=== PATIENT | male | born 1940 | race Caucasian/White ===

== ENCOUNTER 2017-09-24 08:15 | Inpatient (IN) | payer OTHER ==
[~2017-09-24 08:15] MED LIST: ROPIVACAINE 0.2% 80 MG, EPINEPHrine 0.2 MG, KETOROLAC TROMETHAMINE 30 MG in SYRINGE 0 ML IU ONE; TRANEXAMIC ACID 3,000 MG in NS (SYRINGE) 50 ML IRR ONE
--- NOTE | 2017-09-24 09:22 | PDHPUP ---
History & Physical Update H&P update statement: This history and physical update is based on an assessment of the patient which was completed after admission or registration (within 24 hours), but prior to the surgery/procedure. H&P update: H&P reviewed & patient examined, no change in patient's condition since H&P completed
[2017-09-24] MEDS ORDERED: TRANEXAMIC ACID 3,000 MG/50 ML BAG IRR ONE (09:58)
[2017-09-24] MEDS ORDERED: ACETAMINOPHEN 325 MG TAB PO ONE (12:03)
[2017-09-24] MEDS ORDERED: DEXAMETHASONE 4 MG/ML VIAL IVP ONE (12:03)
[2017-09-24] MEDS ORDERED: ceFAZolin 2 GM/SWFI 2 GM/20 ML SYR IVP ONE (12:03)
[2017-09-24] MEDS ORDERED: FAMOTIDINE 20 MG TAB PO ONE (12:03)
[2017-09-24] MEDS ORDERED: LR 1,000 ML IV ONE (12:04)
--- NOTE | 2017-09-24 12:38 | CPEKG ---
Heart Rate: 57 RR Interval: 1053 QRSD Interval: 94 QT Interval: 436 QTC Interval: 425 QRS Lyndora: 9 T Wave Lyndora: 25 EKG Severity - ABNORMAL ECG - EKG Impression: MULTIPLE VENTRICULAR PREMATURE COMPLEXES EKG Impression: LOW VOLTAGE IN FRONTAL LEADS EKG Impression: Junctional escape rhythm Electronically Signed By: Mandeep Robles 24-Sep-2017 13:32:18
--- NOTE | 2017-09-24 13:07 | PDANEPAE ---
ANE History of Present Illness 77 year old male for right total hip arthroplasty. ANE Past Medical History - Cardiovascular History Hx Hypertension: Yes Hx Arrhythmias: Yes Hx Chest Pain: No Hx Coronary Artery / Peripheral Vascular Disease: No Hx CHF / Valvular Disease: No Hx Palpitations: No Cardiovascular History Comment: afib. htn. see's recordist in [place] Dr. Oswald Young- will obtain records - Pulmonary History Hx COPD: No Hx Asthma/Reactive Airway Disease: No Hx Recent Upper Respiratory Infection: No Hx Oxygen in Use at Home: No Hx Sleep Apnea: Yes Sleep Apnea Screening Result - Last Documented: Positive Pulmonary History Comment: monico positive- instructed pt to bring cpap to hospital - Neurologic History Hx Cerebrovascular Accident: No Hx Seizures: No Hx Dementia: No Neurologic History Comment: hx of disc surgery 35 yrs ago (lumbar region, patient believes L5) - Endocrine History Hx Diabetes: No Hypothyroid: No Hyperthyroid: No - Renal History Hx Renal Disorders: No - Liver History Hx Hepatic Disorders: No - Neurological & Psychiatric Hx Hx Neurological and Psychiatric Disorders: No - Cancer History Hx Cancer: No - Congenital Disorder History Hx Congenital Disorders: No - GI History Hx Gastrointestinal Disorders: Yes Gastrointestinal History Comment: reflux- on medications. hx of colonoscopy - Other Health History Other Health History: none - Chronic Pain History Chronic Pain: Yes (right hip) - Surgical History Prior Surgeries: hernia repair 8-10 yrs ago. 35 yrs ago disc surgery. appy as child. tonsillectomy as child. colonoscopy ANE Review of Systems Review of systems is: negative Review of Systems: - Exercise capacity Exercise capacity: >=4 METS METS (RN): 4 METS ANE Patient History - Allergies Allergies/Adverse Reactions: No Known Allergies Allergy (Verified 09/10/17 13:50) - Home Medications Home medications: home medication list seen and reviewed Home Medications: Apixaban [Eliquis] 5 mg PO BID 06/10/16 [Last Taken 09/21/17] Cyanocobalamin (Vitamin B-12) [Vitamin B-12] 1,000 mcg PO DAILY 09/03/17 [Last Taken 09/11/17] Finasteride [Proscar 5 MG (*)] 5 mg PO DAILY 09/03/17 [Last Taken 09/24/17] Furosemide [Lasix 20 MG (*)] 10 mg PO DAILY 09/03/17 [Last Taken 09/17/17] Herbals/Supplements -Info Only 1 ea PO DAILY 09/03/17 [Last Taken 09/11/17] Losartan Potassium [Cozaar] 100 mg PO DAILY 09/03/17 [Last Taken 09/23/17] Metoprolol Succinate Xr [Toprol Xl 100 mg (*)] 100 mg PO DAILY 09/03/17 [Last Taken 09/24/17] Multivitamins [Multivitamin (*)] 1 each PO DAILY 09/03/17 [Last Taken 09/11/17] [place]-3 Fatty Acids [Fish Oil 1000 mg (*)] 1,000 mg PO BID 09/03/17 [Last Taken 09/11/17] Omeprazole [Prilosec 20 mg] 20 mg PO DAILY 09/03/17 [Last Taken 09/24/17] Pyridoxine HCl [Vitamin B-6 100 mg (*)] 100 mg PO DAILY 09/03/17 [Last Taken 08/28] Ranitidine HCl [Zantac] 150 mg PO BID 09/03/17 [Last Taken 09/24/17] amLODIPine BESYLATE [Norvasc 10 mg (*)] 10 mg PO DAILY 09/03/17 [Last Taken ] - NPO status NPO Status: no food or drink >8 hours NPO Since - Liquids (Date): 09/24/17 NPO Since - Liquids (Time): 10:45 NPO Since - Solids (Date): 09/23/17 NPO Since - Solids (Time): 17:00 - Anes Hx Anes Hx: no prior problems - Smoking Hx Smoking Status: Former smoker Marijuana use: No - Alcohol Use Alcohol Use: Rarely - Family Anes Hx Family Anes Hx: neg - N/A Family Hx Anesthesia Complications: none ANE Labs/Vital Signs - Vital Signs Vital Signs: reviewed preoperatively; see RN documention for details Blood Pressure: 145/83 Heart Rate: 56 Respiratory Rate: 14 O2 Sat (%): 96 Height: 177.8 cm Weight: 88.451 kg ANE Physical Exam - Airway Neck exam: FROM Mallampati Score: Class 2 Mouth exam: normal dental/mouth exam Mouth image: 1 - Capped - Pulmonary Pulmonary: no respiratory distress - Cardiovascular Cardiovascular: regular rate and rhythym - ASA Status ASA Status: III ANE Anesthesia Plan Anesthesia Plan: GA w LMA, MAC, spinal Total IV Anesthesia: No
[2017-09-24] MEDS ORDERED: MIDAZOLAM 2 MG/2 ML VIAL IVP ONE (13:31)
[2017-09-24] MEDS ORDERED: MIDAZOLAM 2 MG/2 ML VIAL ONE (13:36)
[2017-09-24] MEDS ORDERED: DEXAMETHASONE 4 MG/ML VIAL ONE (13:41)
[2017-09-24] MEDS ORDERED: PROPOFOL/EMULSION 500 MG/50 ML BOTTLE IV ONE ×2 (13:41→14:40)
[2017-09-24] MEDS ORDERED: ONDANSETRON 4 MG/2 ML VIAL ONE (13:41)
[2017-09-24] MEDS ORDERED: DIPHENOXYLATE/ATROPINE LOMOTIL 1 TAB PO PRN (14:35)
[2017-09-24] MEDS ORDERED: diphenhydrAMINE 25 MG CAP PO PRN (14:35)
[2017-09-24] MEDS ORDERED: BISACODYL 10 MG SUPP PR PRN (14:35)
[2017-09-24] MEDS ORDERED: PROMETHAZINE HCL 25 MG/ML INJ IVP PRN (14:35)
[2017-09-24] MEDS ORDERED: PROMETHAZINE HCL 25 MG SUPPR PR PRN (14:35)
[2017-09-24] MEDS ORDERED: CYCLOBENZAPRINE 10 MG TAB PO PRN (14:35)
[2017-09-24] MEDS ORDERED: POLYETHYLENE GLYCOL 3350 17 GM PKT PO PRN (14:35)
[2017-09-24] MEDS ORDERED: LACTULOSE 20 GM/30 ML UDCUP PO PRN (14:35)
[2017-09-24] MEDS ORDERED: TEMAZEPAM 15 MG CAP PO PRN (14:35)
[2017-09-24] MEDS ORDERED: MAGNESIUM HYDROXIDE 30 ML UDCUP PO PRN (14:35)
[2017-09-24] MEDS ORDERED: oxyCODONE IR 5 MG TAB PO PRN (14:35)
[2017-09-24] MEDS ORDERED: METOCLOPRAMIDE 10 MG/2 ML VIAL IVP PRN (14:35)
[2017-09-24] MEDS ORDERED: ONDANSETRON DISINTEGRATING 4 MG TAB PO PRN (14:35)
[2017-09-24] MEDS ORDERED: ONDANSETRON 4 MG/2 ML VIAL IVP PRN (14:35)
[2017-09-24] MEDS ORDERED: LR 1,000 ML IV SCH (15:00)
[2017-09-24] MEDS ORDERED: NALOXONE HCL 0.4 MG/ML INJ IVP PRN (15:08)
[2017-09-24] MEDS ORDERED: LABETALOL HCL 5 MG/ML 20 ML MDV IVP PRN (15:17)
[2017-09-24] MEDS ORDERED: PHENYLEPHRINE HCL 100 MCG/ML SYR IVP PRN (15:17)
[2017-09-24] MEDS ORDERED: LR 500 ML IV PRN (15:17)
[2017-09-24] MEDS ORDERED: HYDROCODONE/APAP 5/325 TAB PO PRN (15:17)
[2017-09-24] MEDS ORDERED: fentaNYL 100 MCG/2 ML INJ ONE (15:37)
--- NOTE | 2017-09-24 15:37 | POSTOPPROG ---
Post Op Note Date of Operation: 09/24/17 Surgeon: Gideon Webb Industrial/Organizational Psychologist: noa webb Anesthesiologist: dr. russell Anesthesia: Spinal Pre-op Diagnosis: right hip OA Post-op Diagnosis: same Indication: right hip pain due to OA that failed conservative measures Procedure: R JAZMÍN ant approach Findings: severe hip OA Inf/Abcess present in the surg proc area at time of surgery?: No EBL: 100-500
[2017-09-24] MEDS: fentaNYL 100 MCG/2 ML INJ IVP PRN ×2 (15:44→15:51)
[2017-09-24] MEDS ORDERED: HYDROmorphONE/DILAUDID 1 MG/ML INJ ONE ×2 (15:48→16:08)
[2017-09-24] MEDS: HYDROmorphONE/DILAUDID 1 MG/ML INJ IVP PRN ×4 (15:50→16:20)
--- NOTE | 2017-09-24 16:06 | POSTANESTH ---
Post Anesthetic Evaluation Cardiovascular Status: Normal, Stable, Similar to Pre-Op Cond Respiratory Status: Normal, Stable, Similar to Pre-op Cond. Level of Consciousness/Mental Status: Can Participate in Eval, Alert and Oriented Pain Control: Adequate, Prn Tx Ordered Nausea/Vomiting Control: Adequate, Prn Tx Ordered Complications Possibly Related to Anesthesia: None Noted
[2017-09-24] MEDS: ACETAMINOPHEN 325 MG TAB PO SCH (17:14)
--- NOTE | 2017-09-24 17:35 | PDHOSCONS ---
History and Physical - Chief Complaint bradycarida - History of Present Illness I have been asked by Dr George to evaluate and assist in the care of this patient who has bradycardia after surgery. The patient has chronic OA and came in today for elective R JAZMÍN which has been done without complication. In the post op setting he has had HR mostly in the 55-60 range with occaisional high 40s, but no related symptoms and BPs are on the high side. No hypoxemia, sob, nausea or vomiting, chest or other pain, and no long pauses were noted in OR or recovery. He is in AFib and has chronic AFib for which he takes metoprolol 100 mg daily at home. He checks pulse and blood pressures at home daily and tells me he typically has BPs on low normal range and pulse 55-60. He denies ever having lightheadedness dyspnea or fatigue at rest or with exertion or posture. He admits his exertion has lately been very limited by his hip pain. He sees a natural sciences professor up in [place]. He reports good compliance with meds at home. Currently on the ortho floor he has no chest pain or angina, no dyspnea,no nausea, not lightheaded, no abd pain or bloating, and good control of his surgical site pain. No chills or sweats ROS is negative otherwise with 10 systems reviewed History Information - Allergies/Home Medication List Allergies/Adverse Reactions: No Known Allergies Allergy (Verified 09/10/17 13:50) Home Medications: Apixaban [Eliquis] 5 mg PO BID 06/10/16 [Last Taken 09/21/17] Cyanocobalamin (Vitamin B-12) [Vitamin B-12] 1,000 mcg PO DAILY 09/03/17 [Last Taken 09/11/17] Finasteride [Proscar 5 MG (*)] 5 mg PO DAILY 09/03/17 [Last Taken 09/24/17] Furosemide [Lasix 20 MG (*)] 10 mg PO DAILY 09/03/17 [Last Taken 09/17/17] Herbals/Supplements -Info Only 1 ea PO DAILY 09/03/17 [Last Taken 09/11/17] Losartan Potassium [Cozaar] 100 mg PO DAILY 09/03/17 [Last Taken 09/23/17] Metoprolol Succinate Xr [Toprol Xl 100 mg (*)] 100 mg PO DAILY 09/03/17 [Last Taken 09/24/17] Multivitamins [Multivitamin (*)] 1 each PO DAILY 09/03/17 [Last Taken 09/11/17] [place]-3 Fatty Acids [Fish Oil 1000 mg (*)] 1,000 mg PO BID 09/03/17 [Last Taken 09/11/17] Omeprazole [Prilosec 20 mg] 20 mg PO DAILY 09/03/17 [Last Taken 09/24/17] Pyridoxine HCl [Vitamin B-6 100 mg (*)] 100 mg PO DAILY 09/03/17 [Last Taken 08/28] Ranitidine HCl [Zantac] 150 mg PO BID 09/03/17 [Last Taken 09/24/17] amLODIPine BESYLATE [Norvasc 10 mg (*)] 10 mg PO DAILY 09/03/17 [Last Taken ] I have personally reviewed and updated: family history, medical history, social history, surgical history - Past Medical History atrial fibrillation, hypertension Additional medical history: Gout, HTN, Colon polyp, macrocytosis, BPH - Surgical History Reports: no pertinent surgical hx - Family History Positive for: hypertension, stroke Additional family history: PE - Social History Smoking Status: Former smoker Alcohol Use: Rarely Review of Systems Review of Systems: ROS: 10pt was reviewed & negative except for what was stated in HPI & below Physical Exam Physical Exam: Temp Pulse Resp BP Pulse Ox 36.0 C 61 18 139/108 H 98 09/24/17 16:23 09/24/17 16:52 09/24/17 16:52 09/24/17 16:52 09/24/17 16:52 O2 (L/minute) 2 Constitutional: no apparent distress, appears nourished, not in pain Eyes: PERRL, anicteric sclera Ears, Nose, Mouth, Throat: moist mucous membranes Cardiovascular: irregularly irregular, bradycardia, No no murmur, rub, or gallop , No carotid bruit, No edema Respiratory: no respiratory distress, no rales or rhonchi, clear to auscultation Gastrointestinal: normoactive bowel sounds, soft, non-tender abdomen Genitourinary: no bladder fullness Skin: warm, normal color Neurologic: AAOx3, other (normal mentation, speech and language functions), No facial droop Psychiatric: interacting appropriately, not anxious Assessment & Plan Assessment: 1- s/p successful R JAZMÍN 2- Chronic AFib, on metoprolol and eliquis; currently with mild asymptomatic bradycardia with good BPs, is actually at his usual home HR now 3- Mild HTN at present w hx of HTN 4- Hx of HARDEEP 5- Hx of Gout and colon polyps At present he is stable from a heart/pulse/BP standpoint. I will observe him on cardiac component engineer but no other intervention is needed unless he develops concerning symptoms or low blood pressures. I will hold on his metoprolol order for the moment (is not due until AM) but if no problems overnight would resume that in AM. No reason to delay activities at present, unless he develops symptomatic issues from this. As he goes home, if he is able to become more active he may find that he needs a faster HR to avoid fatigue, but he will likely do fine. A decrease in metoprolol dose under watch of his natural sciences professor could be made if necessary I have reviewed all of the above with the patient and his family. Will continue to follow while he is here.
[2017-09-24] MEDS: FAMOTIDINE 20 MG TAB PO SCH (20:18)
[2017-09-24] MEDS: SENNOSIDES/DOCUSATE SODIUM TAB PO SCH (20:18)
[2017-09-24] MEDS ORDERED: FAMOTIDINE 20 MG TAB PO SCH (21:00)
[2017-09-24] MEDS: ceFAZolin 2 GM/SWFI 2 GM/20 ML SYR IVP SCH (21:56)
[2017-09-24] MEDS ORDERED: ceFAZolin 2 GM/DEXTROSE 100 ML IV SCH (22:00)
[2017-09-25] MEDS: ACETAMINOPHEN 325 MG TAB PO SCH ×3 (00:06→13:17)
[2017-09-25] MEDS ORDERED: NS 1,000 ML IV SCH (02:45)
[2017-09-25] MEDS: ceFAZolin 2 GM/SWFI 2 GM/20 ML SYR IVP SCH (06:03)
[2017-09-25 08:21] VITALS: TEMP 97.4
[2017-09-25] MEDS ORDERED: FUROSEMIDE 20 MG TAB PO SCH (09:00)
[2017-09-25] MEDS ORDERED: APIXABAN 5 MG TAB PO SCH (09:00)
[2017-09-25] MEDS: FAMOTIDINE 20 MG TAB PO SCH (09:00)
[2017-09-25] MEDS ORDERED: PANTOPRAZOLE SODIUM 40 MG TAB PO SCH (09:00)
[2017-09-25] MEDS ORDERED: LOSARTAN POTASSIUM 50 MG TAB PO SCH (09:00)
[2017-09-25] MEDS ORDERED: METOPROLOL SUCCINATE XR 100 MG TAB PO SCH (09:00)
[2017-09-25] MEDS ORDERED: FINASTERIDE 5 MG TAB PO SCH (09:00)
[2017-09-25] MEDS: SENNOSIDES/DOCUSATE SODIUM TAB PO SCH (09:01)
--- NOTE | 2017-09-25 09:02 | SOAPPROG ---
SOAP Progress Note Assessment/Plan: Assessment: Patient is doing well POD 1 s/p R JAZMÍN Pain management: pain is well controlled on oral pain meds. VTE ppx: recommend resuming eliquis cont ESTUARDO and SCDs Anemia: level is expected initially postop. Asymptomatic. Continue to monitor D/c planning: d/c to home today pending release from PT appreciate hospitalist assistance managing comorbidities Plan: 09/25/17 09:01 Subjective: Max is doing well today, denies SOB, chest pain and N/V. Objective: Vital Signs Temp Pulse Resp BP Pulse Ox 36.3 C 49 L 17 136/75 H 98 09/25/17 08:00 09/25/17 08:00 09/25/17 08:00 09/25/17 08:00 09/25/17 08:00 Laboratory Results 09/25/17 05:07 09/25/17 05:07 09/24/17 09/25/17 09/26/17 05:59 05:59 05:59 Intake Total 2590 Output Total 450 275 Balance 2140 -275 RLE: incision dressing is clean and dry, NVI, +pf/df ICD10 Worksheet Patient Problems: Problems Problem Status Onset Primary localized osteoarthritis of right hip Acute Abrasion forearm Acute Finger dislocation Acute Scalp laceration Acute
--- NOTE | 2017-09-25 09:18 | GOP ---
[f rep st] OPERATIVE REPORT DATE OF OPERATION: 09/24/2017 SURGEON: Nicholas George MD STABILIZER OPERATOR: PINEDA Roa. ANESTHESIA: Spinal. PREOPERATIVE DIAGNOSIS: Right hip osteoarthritis. POSTOPERATIVE DIAGNOSIS: Right hip osteoarthritis. PROCEDURE PERFORMED: Total hip arthroplasty with x-ray. FINDINGS: ESTIMATED BLOOD LOSS: 200 cc INDICATIONS: The patient has progressively worsening arthritis of the hip which has failed medical m anagement. The patient understands the treatment options including continued non-operative care and has selected surgical intervention. The patient has decided to undergo total hip arthroplasty via th e direct anterior approach, understanding the risks of the procedure including, but not limited to, n eurovascular injury, infection, persistent pain, component wear and loosening, deep venous thrombosis , pulmonary embolism, limb length inequality, hip instability (including dislocation), and intra-oper ative fractures. DESCRIPTION OF PROCEDURE: After proper identification of the patient including verification and foreign ing the surgical site, the patient was brought to the operating room and placed in the supine positio n. All bony prominences were well padded. Anesthesia was induced without complication and intraveno us prophylactic antibiotics were administered prior to skin incision. The operative leg was placed in the Trumpf Arch table extension and the well leg in a [place] leg ho lder. The patient was prepped and draped in the usual sterile fashion. The C-arm was draped for int ra-operative fluoroscopy to check acetabular position, femoral component position including leg lengt h and femoral offset. Attention was then drawn to surgical exposure of the hip. An incision was made with a #10 [place] r blade starting 3 cm lateral and 3 cm distal to the anterior superior iliac spine measuring 8-10 cm and coursing distally toward the greater trochanter. The skin and subcutaneous tissues were divided sharply down to the fascia filemon. The fascia filemon was incised in line with the skin incision exposing the underlying tensor fascia filemon muscle. The muscle was bluntly elevated from the fascia and the f irst extracapsular Cobra retractor was placed laterally at the junction of the superior femoral neck and greater trochanter. The lateral femoral circumflex vessels were identified, cauterized, and divi ded with the Aquamantys bipolar cautery. The deep investing fascia of the TFL was divided to allow p berta mobilization of the muscle preventing damage during the retraction. The reflected head of the rectus femoris muscle was elevated off the anterior hip capsule and a medial Cobra retractor was plac ed just proximal to the lesser trochanter. The anterior capsulotomy was made sharply from the superolateral acetabulum to the saddle junction of the superior femoral neck and greater trochanter, then coursing inferomedial towards the lesser troc hanter. The retractors were then placed in the intracapsular position for femoral neck osteotomy. C orresponding to pre-operative templating, the osteotomy was made with the oscillating saw carefully p rotecting the greater trochanter and soft tissues. The femoral head was removed from the acetabulum with a corkscrew and confirmed to be severely arthritic with exposed bone, deformity and osteophytes. Similar findings were confirmed in the acetabulum. The Arch table extension was then placed in 40 degrees external rotation. Attention was then drawn to the acetabular preparation. After placement of the anterior and posterio r Cobra retractors outside the labrum and intracapsular, the circumferential labrum was removed sharp ly. The foveal contents were then removed and hemostasis obtained with cautery. The first reamer selected was sized using the removed femoral head. Reaming began with medialization and then commenced in 2 mm increments at 45 degrees of abduction and 15 degrees of anteversion using fluoroscopic navigation. Reaming ceased 1 mm less than the definitive acetabular component and nila esponded to the pre-operative templating. The final acetabular component was inserted using fluorosc opy to achieve proper orientation yielding excellent purchase and stability in the acetabulum. The f inal acetabular liner was then placed and its seating confirmed. Attention was then turned to the femur. The Arch table extension was placed in extension and adducti on, delivering the osteotomized femoral neck into the wound. A 2-pronged femoral elevator was placed at the calcar and another at the tip of the greater trochanter. The posterolateral capsule was rele ased with cautery allowing mobilization of the femur lateral and anterior for preparation. The exter nal rotators were visualized and preserved. A curette and rongeur were used to open the starting poi nt for broaching. Serial broaching started with the #0 broach and ended with the broach that exhibit ed excellent fit in the proximal femur. A change in pitch during mallet strikes was accompanied by t he inability to advance the broach any further. The trial reduction was performed and fluoroscopic n avigation was utilized to check limb length. Adjustments were made to equalize limb length according ly. After the final trials were accepted they were removed and the wound was copiously lavaged. The femo ral component was seated to the same depth as the final broach and the femoral head was impacted onto the clean trunnion. The hip was then reduced for the final time and once more fluoroscopy was used to check that limb length equality was achieved. The wound was irrigated and closed in layers, the fascia filemon with 2-0 Quill, the subcutaneous tissue with 2-0 Quill, and the skin with Dermabond. Sterile dressings were applied. Final sharps and spon ge counts were accurate. The patient was then transferred to a hospital bed and brought to the [facility] room in stable condition. IMPLANTS: Accolade II size 4 at 127 acetabular component, a 56 mm Tritanium, liner is a Trident X3, 36 mm. The head is a Biolox Delta 36 mm +2.5. /[id number]/[id number]
[2017-09-25 11:25] VITALS: BP 123/62; PULSE 46; RESP 18; O2SAT 96
== END 2017-09-25 13:26 | disposition home or self-care (01) | DRG 470 ==
LOC: F3N 11:45
PROVIDERS: ADMIT Orthopaedic Surgery; ATTEND Orthopaedic Surgery
PROC: 0SR904Z Replacement of Right Hip Joint with Ceramic on Polyethylene Synthetic Substitute, Open Approach (ICD-10-PCS; principal; 2017-09-24 14:15)
DX: M16.11 Unilateral primary osteoarthritis, right hip (principal); I48.91 Unspecified atrial fibrillation; I10 Essential (primary) hypertension; G47.33 Obstructive sleep apnea (adult) (pediatric); Z79.01 Long term (current) use of anticoagulants; R00.1 Bradycardia, unspecified; M10.9 Gout, unspecified; N40.0 Benign prostatic hyperplasia without lower urinary tract symptoms
CPT/HCPCS: 97161-GP; 97165-GO; 97535-GO; G8978-GP-CI; G8979-GP-CI; G8980-GP-CI; G8987-GO-CI; G8988-GO-CI; G8989-GO-CI; J0171; J0690; J1100; J1170; J1885; J2250; J2370; J2405; J2704; J2795; J3010